=== PATIENT | male | born 1940 | race Caucasian/White ===

== ENCOUNTER 2019-12-03 16:54 | IRF | payer MEDICARE, OTHER, SELFPAY ==
[2019-12-03 14:50] VITALS: BP 132/67; PULSE 74; RESP 20; TEMP 36.6; O2SAT 95; BMI 33.2
--- NOTE | 2019-12-03 17:17 | ADMGEN ---
This patient, Graham Narayan, was admitted to [facility] Room 221-01. Patient/family oriented to hospital policies and general routines including ID bracelet, bed and alarms, visiting hours, pain management, procedures, bathroom and other care routines, personal items, smoking policy, room service/diet, and visiting hours. Valuables list has been completed. Information on how to activate the Rapid Response Team has been discussed. Patient/Family are encouraged to report perceived risks to care and to ask questions if they do not understand what they are told or what they should do.
[2019-12-03] MEDS: ACETAMINOPHEN 325 MG TABLET 650 MG PO (19:48)
[2019-12-03] MEDS: HEPARIN SODIUM 5,000 UNITS/ML VIAL 5000 UNITS SUB-Q (21:33)
[2019-12-03] MEDS: levETIRAcetam 500 MG TABLET 1000 MG PO (21:34)
[2019-12-03] MEDS: LATANOPROST 0.005% OP SOLN 2.5 ML BTL 1 DROP EACH EYE (21:34)
[2019-12-03 22:00] VITALS: BP 138/79; PULSE 63; RESP 18; TEMP 36.2; O2SAT 95
[2019-12-03] MEDS: DEXAMETHASONE 4 MG TABLET PO (22:12)
[2019-12-04] MEDS: LEVOTHYROXINE SODIUM 100 MCG TABLET PO (05:18)
[2019-12-04] MEDS: HEPARIN SODIUM 5,000 UNITS/ML VIAL 5000 UNITS SUB-Q ×3 (05:19→20:37)
[2019-12-04] MEDS: levETIRAcetam 500 MG TABLET 1000 MG PO ×2 (05:19→18:15)
[2019-12-04] MEDS: LEVOTHYROXINE SODIUM 75 MCG TABLET PO (05:19)
[2019-12-04 05:21] LABS: Basophils Percent Auto 0.1 % (0.2-1.2); Hematocrit 33.1 % (42.0-52.0); Hemoglobin 11.4 g/dL (14.0-18.0); Immature Granulocyte Absolute 0.14 K/mm3 (0.00-0.031); Immature Granulocyte Percent A 1.3 % (0-0.5); Lymphocytes Absolute Auto 0.57 K/mm3 (0.9-3.2); Lymphocytes Percent Auto 5.2 % (18.3-44.2); Mean Corpuscular HGB Conc 34.4 g/dl (32-36); Mean Corpuscular Hemoglobin 32.6 pg (26-34); Mean Corpuscular Volume 94.6 fl (80-100); Mean Platelet Volume 11.1 fl (7.4-10.4); Monocytes Absolute Auto 1.1 K/mm3 (0.1-0.6); Monocytes Percent Auto 10.3 % (2.6-8.5); Neutrophils Absolute Auto 9.1 K/mm3 (1.3-6.7); Neutrophils Percent Auto 83.1 % (45.5-73.1); Platelet Count Result 263 k/mm3 (150-375); Red Cell Distribution Width 12.3 % (11.5-14.5)
[2019-12-04 05:33] LABS: Blood Urea Nitrogen 25 mg/dL (9-20); Calcium 8.9 mg/dL (8.4-10.2); Carbon Dioxide 27 mmol/L (22-30); Chloride 98 mmol/L (98-107); Cholesterol 141 mg/dL (0-200); Estimated CRCL calculation 70 ml/min; Estimated Glomerular Filt Rate > 60; Glucose 218 mg/dL (75-110); HDL Direct 39 mg/dL; Potassium 3.8 mmol/L (3.4-5.0); Sodium 135 mmol/L (137-145); Triglycerides 112 mg/dL (<150)
[2019-12-04 05:44] LABS: LDL Cholesterol Direct 87 mg/dL
[2019-12-04 06:00] VITALS: BP 148/81; PULSE 72; RESP 20; TEMP 36.6; O2SAT 96
[2019-12-04] MEDS: ACETAMINOPHEN 325 MG TABLET 650 MG PO (08:43)
[2019-12-04] MEDS: CALCIUM CARBONATE (OSCAL) 500 MG TABLET 1000 MG PO (08:44)
[2019-12-04] MEDS: LOSARTAN POTASSIUM 100 MG TABLET PO (08:44)
[2019-12-04] MEDS: ATORVASTATIN 10 MG TABLET PO (08:44)
[2019-12-04] MEDS: DEXAMETHASONE 2 MG TABLET PO ×4 (08:44→20:38)
[2019-12-04] MEDS: MELOXICAM 7.5 MG TABLET PO (08:44)
[2019-12-04] MEDS: hydroCHLOROthiazide 25 MG TABLET PO (08:45)
[2019-12-04] MEDS: MULTIVITAMINS THERAPEUTIC TAB (*BKC) 1 TABLET PO (08:45)
[2019-12-04] MEDS: PANTOPRAZOLE 40 MG TABLET PO (08:45)
[2019-12-04] MEDS: ASPIRIN 81 MG CHEWABLE TABLET PO (08:45)
--- NOTE | 2019-12-04 13:30 | WPDREHABHP ---
H&P: HPI History of Present Illness Chief complaint: Right naeoexk-qzzvfwi-dsyxtzqvd lobe glioma Narrative: Graham Narayan is a 79 year old male HISTORY OF PRESENT ILLNESS: The patient's primary rehab impairment category is 0 3-brain dysfunction-nontraumatic The etiologic diagnosis is right parietotemporal parieto-occipital lobe glioma I saw this patient [id number] on December 04, 2019 at 1:00 p.m. The patient is a 79-year-old right-handed gentleman with a past medical history of pituitary adenoma resection in 2004, melanoma in the ER, thyroid cancer status post thyroidectomy, hypertension, and hyperlipidemia who presented to [facility] and November 25, 2019 after having had 1 to 2 weeks of headaches with left-sided visual field cuts and we gait with and steadiness. Imaging demonstrated an aggressive malignancy in the right posterior temporal / occipital lobe consistent with a multicentric glioblastoma. Neurosurgery was consulted and he underwent a craniotomy with tumor resection on November 29, 2019 with Aravind. Intraoperatively the case was complicated by increased venous bleeding. He was transferred to ICU. Postoperatively he did fairly well he did have a blood clot for which an IVC filter was placed on December 02, 2019. Physical examination continues to reveal left-sided neglect decreased safety awareness impaired balance decreased gross motor control and weakness. DVT prophylaxis with heparin 5000 units q.8 hours subcutaneously is in order seizure prophylaxis with Keppra 1000 milligram every 12 hour. He will continue on Decadron 4 milligram q.6 hours which is going to be tapered according to the schedule received from [facility] his pain is very well controlled and his labs are 2 within the normal limits except some elevation of the white count and blood sugar which most likely is due to use of dexamethasone the patient will have a follow-up appointment an outpatient basis and treatment plans will be made following inpatient rehabilitation. Therapy was initiated at the acute care facility and the patient transferred to us from [facility] on December 03, 2019 on FALLS OR SURGERIES: The patient has had major surgeries in the 100 days prior to admission. They had falls in the past year. They had falls with injury in the past year. 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 His significant other was present for the interview and his plan is to go home with her following rehabilitation. The significant other is available 247 her [place] is a 2 story home with 2 steps to enter with the handrail. He will need to be able to ascend/ descend a full flight of stairs to reach the bedroom /bathroom on the 2nd level. He is very motivated. He reported no falls in the past year he has had major surgery during this hospitalization. FAMILY HISTORY: Father with hypertension, rheumatic heart disease, peptic ulcer disease. Mother with breast cancer and stroke PRIOR LEVEL OF FUNCTION: Eating was INDEPENDENT Oral Care was INDEPENDENT Toileting Hygiene was INDEPENDENT Shower/Bathing was INDEPENDENT Upper Body Dressing was INDEPENDENT Lower Body Dressing was INDEPENDENT Donning/[place] Footwear was INDEPENDENT Rolling Left and Right was INDEPENDENT Sit to Lying was INDEPENDENT Lying to Sitting was INDEPENDENT Sit to Stand was INDEPENDENT Bed to Chair Transfers was INDEPENDENT Toilet Transfers was INDEPENDENT Walking was INDEPENDENT 750 feet with NO DEVICE Wheelchair Mobility was NOT APPLICABLE PRIOR TO ADMISSION Stairs were
[2019-12-04 14:00] VITALS: BP 122/53; PULSE 85; RESP 18; TEMP 36.4; O2SAT 100
[2019-12-04] MEDS: LATANOPROST 0.005% OP SOLN 2.5 ML BTL 1 DROP EACH EYE (18:15)
[2019-12-04 22:00] VITALS: BP 117/83; PULSE 78; RESP 16; TEMP 36.3; O2SAT 98
[2019-12-05] MEDS: HEPARIN SODIUM 5,000 UNITS/ML VIAL 5000 UNITS SUB-Q ×3 (05:24→20:30)
[2019-12-05] MEDS: levETIRAcetam 500 MG TABLET 1000 MG PO ×2 (05:24→16:54)
[2019-12-05] MEDS: LEVOTHYROXINE SODIUM 75 MCG TABLET PO (05:27)
[2019-12-05] MEDS: LEVOTHYROXINE SODIUM 100 MCG TABLET PO (05:40)
[2019-12-05 06:00] VITALS: BP 145/71; PULSE 63; RESP 16; TEMP 36.6; O2SAT 98
[2019-12-05] MEDS: ASPIRIN 81 MG CHEWABLE TABLET PO (09:57)
[2019-12-05] MEDS: CALCIUM CARBONATE (OSCAL) 500 MG TABLET 1000 MG PO (09:57)
[2019-12-05] MEDS: LOSARTAN POTASSIUM 100 MG TABLET PO (09:57)
[2019-12-05] MEDS: DEXAMETHASONE 2 MG TABLET PO ×4 (09:57→20:28)
[2019-12-05] MEDS: ATORVASTATIN 10 MG TABLET PO (09:58)
[2019-12-05] MEDS: PANTOPRAZOLE 40 MG TABLET PO (09:58)
[2019-12-05] MEDS: MULTIVITAMINS THERAPEUTIC TAB (*BKC) 1 TABLET PO (09:58)
[2019-12-05] MEDS: hydroCHLOROthiazide 25 MG TABLET PO (09:58)
[2019-12-05] MEDS: MELOXICAM 7.5 MG TABLET PO (09:58)
--- NOTE | 2019-12-05 13:58 | WPDNEURORHBP ---
Subjective Date/time seen: 12/05/19 13:58 Interval history: patient is here after having at craniotomy for glioblastoma he denies any headache nausea vomiting chest pain or shortness of breath but complains of insomnia and the occupational therapist noted that the patient has some confusion and visual field defect which she clearly is aware of and so is the alyssae who is present at the time of the interview Review of Systems Constitutional: Constitutional: Reports no additional constitutional complaints Eyes: Eyes: Reports no additional eye complaints ENT: Reports system reviewed and no additional complaints, except as documented Cardiovascular: Cardiovascular: Reports no additional cardiovascular complaints Respiratory: Respiratory: Reports no additional respiratory complaints Gastrointestinal: Gastrointestinal: Reports no additional gastrointestinal complaints Genitourinary: Genitourinary: Reports no additional male genitourinary complaints Musculoskeletal: Musculoskeletal: Reports no additional musculoskeletal complaints Integumentary/Breasts: Skin/Breast: Reports system reviewed and no additional complaints, except as docu Neurologic: Reports system reviewed and no additional complaints, except as documented Psychiatric: Psychiatric: Reports no additional psychiatric complaints Functional Status Ambulation Ability Ability to Ambulate 10 Feet: Minimum Assistance X 1 Ability to Ambulate 50 Feet With 2 Turns: Minimum Assistance X 1 Ability to Ambulate 150 Feet: Minimum Assistance X 1 Ambulation Assistive Devices: None Transfers Ability Ability to Transfer In/Out of Chair: Minimum Assistance X 1 Exam Const: General: comfortable and no acute distress HENMT: General nose exam: Normal nares present Mouth: Yes moist mucous membranes Eyes: General: appearance normal, both eyes and all related structures Other: left-sided visual field defect which is quite dense Neck: Neck: supple and no JVD Resp: Effort & Inspection: normal respiratory effort Auscultation: clear to auscultation bilaterally Cardio: Rate: regular rate Rhythm: regular rhythm GI: GI Palp: Yes Soft to palpation Auscultation: normal bowel sounds Skin: General skin exam: normal color and no rashes or lesions noted Neuro: Other: patient at the time of this examination is quite alert and well oriented time place and person normal speech and language function he does have a left-sided visual field defect which is rather dense and also [id number] left-sided hemiparesis needing assistance all the activities of daily living and DIS balance for which she needs the assistance and careful monitoring for fall prevention Extrem: General: normal to inspection Objective Data Vital Signs Vital Signs: Vital Signs - 24 hr 12/04/19 14:00 12/04/19 22:00 12/05/19 06:00 Temperature 36.4 C 36.3 C L 36.6 C Pulse Rate 85 78 63 Respiratory Rate 18 16 16 Blood Pressure 122/53 L 117/83 145/71 H Pulse Oximetry 100 98 98 Intake/Output Intake/Output: Intake & Output 12/02/19 12/03/19 12/04/19 12/05/19 23:59 23:59 23:59 23:59 Intake Total 960 480 Balance 960 480 Meds/Results Medications: Active Medications Generic Name Dose Route Start Last Admin Trade Name Freq PRN Reason Stop Dose Admin Acetaminophen 650 mg 12/03/19 18:03 12/04/19 08:43 Tylenol Tablet PO 650 mg Q4H PRN Administration Pain (Scale Score 1-3) Aspirin 81 mg 12/04/19 09:00 12/05/19 09:57 Aspirin Chewable PO 81 mg DAILY BLUE Administration Atorvastatin Calcium 10 mg 12/04/19 09:00 12/05/19 09:58 Lipitor PO 10 mg DAILY BLUE Administration Calcium Carbonate 1,000 mg 12/04/19 09:00 12/05/19 09:57 Oscal 500 Mg PO 1,000 mg DAILY BLUE Administration Dexamethasone 4 mg 12/04/19 08:00 12/05/19 12:26 Dexamethasone Po PO 12/17/19 07:59 4 mg [facility] BLUE Administration Taper Diphenhydramine HCl 25 mg 12/05/19 13:13
[2019-12-05 14:00] VITALS: BP 120/66; PULSE 63; RESP 18; TEMP 36.3; O2SAT 99
[2019-12-05] MEDS: DOCUSATE SODIUM 100 MG CAPSULE PO ×2 (16:53→20:28)
[2019-12-05] MEDS: LATANOPROST 0.005% OP SOLN 2.5 ML BTL 1 DROP EACH EYE (16:55)
[2019-12-05] MEDS: ACETAMINOPHEN 325 MG TABLET 650 MG PO (20:28)
[2019-12-05 21:11] VITALS: BP 117/71; PULSE 61; RESP 20; TEMP 36.4; O2SAT 96
[2019-12-06] MEDS: levETIRAcetam 500 MG TABLET 1000 MG PO ×2 (06:11→18:17)
[2019-12-06] MEDS: LEVOTHYROXINE SODIUM 75 MCG TABLET PO (06:11)
[2019-12-06] MEDS: LEVOTHYROXINE SODIUM 100 MCG TABLET PO (06:11)
[2019-12-06] MEDS: HEPARIN SODIUM 5,000 UNITS/ML VIAL 5000 UNITS SUB-Q ×3 (06:11→21:09)
[2019-12-06] MEDS: ATORVASTATIN 10 MG TABLET PO (10:01)
[2019-12-06] MEDS: CALCIUM CARBONATE (OSCAL) 500 MG TABLET 1000 MG PO (10:01)
[2019-12-06] MEDS: DEXAMETHASONE 2 MG TABLET PO ×4 (10:01→20:33)
[2019-12-06] MEDS: ASPIRIN 81 MG CHEWABLE TABLET PO (10:01)
[2019-12-06] MEDS: MULTIVITAMINS THERAPEUTIC TAB (*BKC) 1 TABLET PO (10:02)
[2019-12-06] MEDS: LOSARTAN POTASSIUM 100 MG TABLET PO (10:02)
[2019-12-06] MEDS: MELOXICAM 7.5 MG TABLET PO (10:02)
[2019-12-06] MEDS: DOCUSATE SODIUM 100 MG CAPSULE PO ×2 (10:02→20:33)
[2019-12-06] MEDS: hydroCHLOROthiazide 25 MG TABLET PO (10:02)
[2019-12-06] MEDS: PANTOPRAZOLE 40 MG TABLET PO (10:03)
[2019-12-06 14:00] VITALS: BP 131/67; PULSE 77; RESP 19; TEMP 36.7; O2SAT 99
[2019-12-06 14:22] VITALS: BMI 33.2
--- NOTE | 2019-12-06 15:39 | PCNSR ---
On 12/06/19, the student, Lyubov Escalante, provided care and completed [facility] documentation on this patient. I have reviewed the student's documentation and agree with the findings.
--- NOTE | 2019-12-06 16:58 | RPD ---
INDIVIDUALIZED PLAN OF CARE FOR Graham Narayan Brief Synthesis of Pre-Admission Screen, Post-Admission Evaluation and Therapy Evaluations: The patient presents to rehab with Right zijtlcy-niwypct-atikang-occipital lobe glioma. Comorbidities include Status post craniotomy for tumor resection, deep venous thrombosis status post IVC filter placement, hypertension, acute blood loss anemia, leukocytosis, left-sided neglect, balance impairment, hyperlipidemia, acute pain, impaired mobility. The patient requires physician services for neurology services, medical oversight, and coordination of care. The patient needs physician monitoring and treatment of anemia, perioperative blood loss, monitoring for adverse reactions to new medications, monitoring of infection, and pain control. Deficits include:ADLs, Balance, Endurance, Mobility, Pain Management, ROM, Safety, Strength,Transfers Kineseologist/Case Management for: Discharge Planning and Patient/Family Counseling Physical Therapy: 5 days per week for 75 minutes. Treatments may include: Therapeutic Exercise, Gait Training, Neuromuscular Re-education, Transfer Training, Community Reintegration, Bed Mobility, Patient/Family Education, Wheelchair Mobility Group Therapy/Concurrent Therapy Rationales: -Improve attention span during functional activities in a distracted environment. -Enhance problem solving and/or adequate judgment skills during functional activities in a distracted environment. -Promote increased safety awareness in a distracted environment to reduce fall risk with functional tasks, transfers, and ambulation to allow a more safe, self-sufficient return to the home environment. -Improve dynamic balance skills to promote safety and independence with functional activities in a distracted environment for maximum gain. Occupational Therapy: 5 days per week for 75 minutes. Treatments may include: Therapeutic Exercise, Therapeutic Activity, Cognitive Training, Self-Care Transfer Training, Community Reintegration, Home Management, Patient/Family Education, Wheelchair Mobility Training, Energy Conservation Training Group Therapy/Concurrent Therapy Rationales: -Allow therapist to observe and teach generalization and carry-over of skills learned in individual therapy. -Enhance problem solving and sequencing skills during therapeutic activities in a distracted environment. -Promote increased safety awareness in a realistic setting to reduce fall risk with functional tasks due to visual and verbal distractions. -Increase functional level with ADLs, ADL transfers and use of adaptive equipment through therapeutic activities with others while promoting safety to allow a more safe, self-sufficient return home. Speech Therapy: 5 days per week for 30 minutes. Treatments may include: Dysphasia Therapy, Speech/Language/Communication Therapy, Cognitive Training, Patient/Family Education Group Therapy/Concurrent Therapy - Rationale: -Allow therapist to observe and teach generalization and carry-over of skills learned in individual therapy. -Improve comprehension skills with complex or abstract ideas through discussion in a realistic setting. -Enhance problem solving skills with complex issues during activities in a distracted environment. -Promote increased memory skills and concentration in a distracted environment for a safe transition home. -Improve attention and focus with language/communication skills in a realistic and supportive therapeutic setting. -Allow for practice of expression of basic needs and ideas through functional activities with others. Medical Prognosis: Good Anticipated Length of Stay: 12 days Rehab Goals: Eating Goal: 06-Independent Oral Hygiene Goal: 06-Independent Toileting Hygiene Goal: 06-Independent Shower/Bathe Self Goal: 06-Independent Upper Body Dressing Goal: 06-Independent Lower Body Dressing Goal: 06-Independent Putting On/Taking Off Footwear Goal: 06-Independent Rolling Left and
[2019-12-06] MEDS: LATANOPROST 0.005% OP SOLN 2.5 ML BTL 1 DROP EACH EYE (18:17)
[2019-12-06] MEDS: ACETAMINOPHEN 325 MG TABLET 650 MG PO (21:09)
[2019-12-06 22:00] VITALS: BP 148/74; PULSE 93; RESP 18; TEMP 36.6; O2SAT 97
[2019-12-07] MEDS: levETIRAcetam 500 MG TABLET 1000 MG PO ×2 (05:57→17:28)
[2019-12-07] MEDS: LEVOTHYROXINE SODIUM 75 MCG TABLET PO (05:57)
[2019-12-07] MEDS: HEPARIN SODIUM 5,000 UNITS/ML VIAL 5000 UNITS SUB-Q ×3 (05:58→20:56)
[2019-12-07] MEDS: LEVOTHYROXINE SODIUM 100 MCG TABLET PO (05:58)
[2019-12-07 06:00] VITALS: BP 157/85; PULSE 66; RESP 19; TEMP 36.2; O2SAT 95
[2019-12-07] MEDS: ACETAMINOPHEN 325 MG TABLET 650 MG PO ×2 (06:04→10:30)
[2019-12-07] MEDS: DEXAMETHASONE 2 MG TABLET PO ×4 (10:31→20:55)
[2019-12-07] MEDS: ASPIRIN 81 MG CHEWABLE TABLET PO (10:31)
[2019-12-07] MEDS: ATORVASTATIN 10 MG TABLET PO (10:31)
[2019-12-07] MEDS: DOCUSATE SODIUM 100 MG CAPSULE PO ×2 (10:32→20:56)
[2019-12-07] MEDS: hydroCHLOROthiazide 25 MG TABLET PO (10:32)
[2019-12-07] MEDS: CALCIUM CARBONATE (OSCAL) 500 MG TABLET 1000 MG PO (10:32)
[2019-12-07] MEDS: MELOXICAM 7.5 MG TABLET PO (10:33)
[2019-12-07] MEDS: LOSARTAN POTASSIUM 100 MG TABLET PO (10:33)
[2019-12-07] MEDS: MULTIVITAMINS THERAPEUTIC TAB (*BKC) 1 TABLET PO (10:33)
[2019-12-07] MEDS: PANTOPRAZOLE 40 MG TABLET PO (10:34)
--- NOTE | 2019-12-07 12:19 | WPDNEURORHBP ---
Subjective Date/time seen: 12/07/19 12:19 Interval history: the patient is here because of right parietotemporal occipital most likely glioblastoma with significant visual field defect and higher level balance problem and the safety issues patient is quite jovial and talkative and at times impulsive which is most likely the effect of dexamethasone he is on a times make some inappropriate remarks however they are now out of ordinary patient denies any headache nausea vomiting chest pain or shortness of breath fever chills Review of Systems Constitutional: Constitutional: Reports no additional constitutional complaints Eyes: Eyes: Reports no additional eye complaints ENT: Reports system reviewed and no additional complaints, except as documented Cardiovascular: Cardiovascular: Reports no additional cardiovascular complaints Respiratory: Respiratory: Reports no additional respiratory complaints Gastrointestinal: Gastrointestinal: Reports no additional gastrointestinal complaints Genitourinary: Genitourinary: Reports no additional male genitourinary complaints Musculoskeletal: Musculoskeletal: Reports no additional musculoskeletal complaints Integumentary/Breasts: Skin/Breast: Reports system reviewed and no additional complaints, except as docu Neurologic: Reports system reviewed and no additional complaints, except as documented Psychiatric: Psychiatric: Reports no additional psychiatric complaints Functional Status Ambulation Ability Ability to Ambulate 10 Feet: Minimum Assistance X 1 Ability to Ambulate 50 Feet With 2 Turns: Minimum Assistance X 1 Ability to Ambulate 150 Feet: Minimum Assistance X 1 Ambulation Assistive Devices: Cane Transfers Ability Ability to Transfer In/Out of Chair: Contact Guard Exam Const: General: comfortable and no acute distress HENMT: General nose exam: Normal nares present Mouth: Yes moist mucous membranes Other: the craniotomy site is clean and healthy on the right hip right 0 temporal occipital area Eyes: General: appearance normal, both eyes and all related structures Neck: Neck: supple and no JVD Resp: Effort & Inspection: normal respiratory effort Auscultation: clear to auscultation bilaterally Cardio: Rate: regular rate Rhythm: regular rhythm GI: GI Palp: Yes Soft to palpation Auscultation: normal bowel sounds Skin: General skin exam: normal color and no rashes or lesions noted Neuro: Other: patient is well oriented time place and person little in place for and jovial and talkative continues to show left-sided neglect left-sided dense visual field defect and balance issues and safety issues he did have some sensory phenomenon yesterday where the left forearm hand was numb however it resolved in reasonable period of time we need to observe for any focal motor and/or sensory seizures knowing the fact he does have a lesion on the right hemisphere Objective Data Vital Signs Vital Signs: Vital Signs - 24 hr 12/06/19 14:00 12/06/19 22:00 12/07/19 06:00 Temperature 36.7 C 36.6 C 36.2 C L Pulse Rate 77 93 66 Respiratory Rate 19 18 19 Blood Pressure 131/67 148/74 H 157/85 H Pulse Oximetry 99 97 95 Intake/Output Intake/Output: Intake & Output 12/04/19 12/05/19 12/06/19 12/07/19 23:59 23:59 23:59 23:59 Intake Total 960 720 910 440 Balance 960 720 910 440 Meds/Results Medications: Active Medications Generic Name Dose Route Start Last Admin Trade Name Freq PRN Reason Stop Dose Admin Acetaminophen 650 mg 12/03/19 18:03 12/07/19 10:30 Tylenol Tablet PO 650 mg Q4H PRN Administration Pain (Scale Score 1-3) Aspirin 81 mg 12/04/19 09:00 12/07/19 10:31 Aspirin Chewable PO 81 mg DAILY BLUE Administration Atorvastatin Calcium 10 mg 12/04/19 09:00 12/07/19 10:31 Lipitor PO 10 mg DAILY BLUE Administration Bisacodyl 10 mg 12/05/19 14:09 Dulcolax Tab PO DAILY PRN Constipation Calcium Carbonate 1,000 mg 12/04/19
[2019-12-07 14:00] VITALS: BP 142/74; PULSE 70; RESP 18; TEMP 36.3; O2SAT 98
--- NOTE | 2019-12-07 14:29 | PCCCNOTE ---
On 12/07/19, the student, [Lavelle Baker ], provided care and completed [facility] documentation on this patient. I have reviewed the student's documentation and agree with the findings.
[2019-12-07] MEDS: LATANOPROST 0.005% OP SOLN 2.5 ML BTL 1 DROP EACH EYE (17:29)
--- NOTE | 2019-12-07 18:18 | PC.NURSE ---
Late entry from 12/06/19: Patient called endo doctor and settings changed to insulin pump. From 6am to 12am basal rate down to 1.2 from 1.4 and 12am to 5am 1.25 with 10:1 carb ratio which started at approx. 5pm. Will continue to monitor. 12/07/19 battery changed at 4:30pm.
[2019-12-07] MEDS: MELATONIN 5 MG TABLET 10 MG PO (20:56)
[2019-12-07 22:00] VITALS: BP 136/75; PULSE 71; RESP 18; TEMP 36.5; O2SAT 95
[2019-12-08 06:00] VITALS: BP 126/58; PULSE 72; RESP 18; TEMP 36.3; O2SAT 97
[2019-12-08] MEDS: LOSARTAN POTASSIUM 100 MG TABLET PO (06:07)
[2019-12-08] MEDS: HEPARIN SODIUM 5,000 UNITS/ML VIAL 5000 UNITS SUB-Q ×3 (06:07→22:00)
[2019-12-08] MEDS: CALCIUM CARBONATE (OSCAL) 500 MG TABLET 1000 MG PO (06:07)
[2019-12-08] MEDS: PANTOPRAZOLE 40 MG TABLET PO (06:08)
[2019-12-08] MEDS: MELOXICAM 7.5 MG TABLET PO (06:08)
[2019-12-08] MEDS: hydroCHLOROthiazide 25 MG TABLET PO (06:08)
[2019-12-08] MEDS: DOCUSATE SODIUM 100 MG CAPSULE PO ×2 (06:08→20:39)
[2019-12-08] MEDS: MULTIVITAMINS THERAPEUTIC TAB (*BKC) 1 TABLET PO (06:08)
[2019-12-08] MEDS: DEXAMETHASONE 2 MG TABLET PO ×4 (06:08→20:39)
[2019-12-08] MEDS: LEVOTHYROXINE SODIUM 75 MCG TABLET PO (06:09)
[2019-12-08] MEDS: LEVOTHYROXINE SODIUM 100 MCG TABLET PO (06:09)
[2019-12-08] MEDS: ATORVASTATIN 10 MG TABLET PO (06:09)
[2019-12-08] MEDS: ASPIRIN 81 MG CHEWABLE TABLET PO (06:09)
[2019-12-08] MEDS: levETIRAcetam 500 MG TABLET 1000 MG PO ×2 (06:09→17:52)
[2019-12-08 08:00] VITALS: PULSE 71; RESP 20; O2SAT 94
--- NOTE | 2019-12-08 10:50 | WPDNEURORHBP ---
Subjective Date/time seen: 12/08/19 10:50 Interval history: patient had an appointment with his neurosurgeon this morning and has gone for the appointment however according to the night nurse and also the attending nurse this morning the patient is stable without any change in his overall neurological and mental status status denies any headache nausea vomiting chest pain or shortness of breath his higher level balance issues and visual field defect remains roughly about the same Review of Systems Constitutional: Constitutional: Reports no additional constitutional complaints Eyes: Eyes: Reports no additional eye complaints ENT: Reports system reviewed and no additional complaints, except as documented Cardiovascular: Cardiovascular: Reports no additional cardiovascular complaints Respiratory: Respiratory: Reports no additional respiratory complaints Gastrointestinal: Gastrointestinal: Reports no additional gastrointestinal complaints Genitourinary: Genitourinary: Reports no additional male genitourinary complaints Musculoskeletal: Musculoskeletal: Reports no additional musculoskeletal complaints Integumentary/Breasts: Skin/Breast: Reports system reviewed and no additional complaints, except as docu Neurologic: Reports system reviewed and no additional complaints, except as documented Psychiatric: Psychiatric: Reports no additional psychiatric complaints Functional Status Ambulation Ability Ability to Ambulate 10 Feet: Contact Guard Ability to Ambulate 50 Feet With 2 Turns: Contact Guard Ability to Ambulate 150 Feet: Contact Guard Ambulation Assistive Devices: Cane Transfers Ability Ability to Transfer In/Out of Chair: Standby Assistance Exam Const: General: comfortable and no acute distress HENMT: General nose exam: Normal nares present Mouth: Yes moist mucous membranes Eyes: General: appearance normal, both eyes and all related structures Neck: Neck: supple and no JVD Resp: Effort & Inspection: normal respiratory effort Auscultation: clear to auscultation bilaterally Cardio: Rate: regular rate Rhythm: regular rhythm GI: GI Palp: Yes Soft to palpation Auscultation: normal bowel sounds Skin: General skin exam: normal color and no rashes or lesions noted Neuro: Other: patient is well oriented to time place and person is with normal speech and language function however does have dense left-sided visual field defect and also left-sided neglect and also higher level balance problem with mild him I sensory deficit on the left side and possibly subtle but present left-sided weakness Extrem: General: normal to inspection Objective Data Vital Signs Vital Signs: Vital Signs - 24 hr 12/07/19 14:00 12/07/19 22:00 12/08/19 06:00 Temperature 36.3 C L 36.5 C 36.3 C L Pulse Rate 70 71 72 Respiratory Rate 18 18 18 Blood Pressure 142/74 H 136/75 126/58 L Pulse Oximetry 98 95 97 Intake/Output Intake/Output: Intake & Output 12/05/19 12/06/19 12/07/19 12/08/19 23:59 23:59 23:59 23:59 Intake Total 720 910 920 Balance 720 910 920 Meds/Results Medications: Active Medications Generic Name Dose Route Start Last Admin Trade Name Freq PRN Reason Stop Dose Admin Acetaminophen 650 mg 12/03/19 18:03 12/07/19 10:30 Tylenol Tablet PO 650 mg Q4H PRN Administration Pain (Scale Score 1-3) Aspirin 81 mg 12/04/19 09:00 12/08/19 06:09 Aspirin Chewable PO 81 mg DAILY BLUE Administration Atorvastatin Calcium 10 mg 12/04/19 09:00 12/08/19 06:09 Lipitor PO 10 mg DAILY BLUE Administration Bisacodyl 10 mg 12/05/19 14:09 Dulcolax Tab PO DAILY PRN Constipation Calcium Carbonate 1,000 mg 12/04/19 09:00 12/08/19 06:07 Oscal 500 Mg PO 1,000 mg DAILY BLUE Administration Dexamethasone 2 mg 12/04/19 08:00 12/08/19 06:08 Dexamethasone Po PO 12/17/19 07:59 2 mg [facility] BLUE Administration Taper Diphenhydramine HCl 25 mg 12/05/19 13:13 02
[2019-12-08 14:00] VITALS: BP 126/64; PULSE 71; RESP 20; TEMP 36.4; O2SAT 94
--- NOTE | 2019-12-08 14:00 | PCOTNOTE ---
Patient had limited OT minutes this date secondary to MD appointments this AM. Patient did not receive full OT minutes this date.
--- NOTE | 2019-12-08 16:01 | PCPTNOTE ---
Graham Narayan was evaluated for a []straight cane on 12/08/2019 by this physical therapist. The []straight cane will resolve patient's mobility limitations and will be used for ADL's within the home. The patient can safely use the [cane and will greatly require use of cane to improve safety with mobility and ADL's and fall prevention]. Patient has deficits with standing balance, impulsivity, easily distracted, and visual deficits.?The [straight cane] will resolve the patient?s mobility deficits and aide in fall prevention.
[2019-12-08] MEDS: LATANOPROST 0.005% OP SOLN 2.5 ML BTL 1 DROP EACH EYE (17:52)
[2019-12-08] MEDS: MELATONIN 5 MG TABLET 10 MG PO (20:39)
[2019-12-08] MEDS: ACETAMINOPHEN 325 MG TABLET 650 MG PO (20:42)
[2019-12-08 21:58] VITALS: BP 128/56; PULSE 68; RESP 18; TEMP 36.8; O2SAT 97
[2019-12-08 23:26] LABS: Glucose Point of Care 133 (65-105)
[2019-12-09 06:00] VITALS: BP 147/79; PULSE 59; RESP 20; TEMP 36.3; O2SAT 96
[2019-12-09] MEDS: HEPARIN SODIUM 5,000 UNITS/ML VIAL 5000 UNITS SUB-Q ×3 (06:11→21:01)
[2019-12-09] MEDS: levETIRAcetam 500 MG TABLET 1000 MG PO (06:12)
[2019-12-09] MEDS: LEVOTHYROXINE SODIUM 75 MCG TABLET PO (06:13)
[2019-12-09] MEDS: LEVOTHYROXINE SODIUM 100 MCG TABLET PO (06:13)
[2019-12-09 07:14] LABS: Glucose Point of Care 126 (65-105)
[2019-12-09] MEDS: LOSARTAN POTASSIUM 100 MG TABLET PO (10:05)
[2019-12-09] MEDS: PANTOPRAZOLE 40 MG TABLET PO (10:05)
[2019-12-09] MEDS: MULTIVITAMINS THERAPEUTIC TAB (*BKC) 1 TABLET PO (10:05)
[2019-12-09] MEDS: ATORVASTATIN 10 MG TABLET PO (10:05)
[2019-12-09] MEDS: hydroCHLOROthiazide 25 MG TABLET PO (10:05)
[2019-12-09] MEDS: DOCUSATE SODIUM 100 MG CAPSULE PO ×2 (10:06→20:56)
[2019-12-09] MEDS: ASPIRIN 81 MG CHEWABLE TABLET PO (10:06)
[2019-12-09] MEDS: DEXAMETHASONE 2 MG TABLET PO ×4 (10:06→20:55)
[2019-12-09] MEDS: CALCIUM CARBONATE (OSCAL) 500 MG TABLET 1000 MG PO (10:06)
[2019-12-09] MEDS: MELOXICAM 7.5 MG TABLET PO (10:06)
[2019-12-09 12:13] LABS: Glucose Point of Care 81 (65-105)
[2019-12-09 14:00] VITALS: BP 114/54; PULSE 73; RESP 20; TEMP 36.3; O2SAT 100
--- NOTE | 2019-12-09 14:47 | PCPTNOTE ---
12/09/19 late entry for 10/07/20- patient was not avaliable for physical therapy this am due to patient at out of house doctor appointment this date.
[2019-12-09 15:08] VITALS: PULSE 59; RESP 20; O2SAT 96
[2019-12-09 17:32] LABS: Glucose Point of Care 162 (65-105)
[2019-12-09] MEDS: LATANOPROST 0.005% OP SOLN 2.5 ML BTL 1 DROP EACH EYE (17:46)
[2019-12-09 20:46] LABS: Glucose Point of Care 182 (65-105)
[2019-12-09] MEDS: levETIRAcetam 500 MG TABLET PO (20:56)
[2019-12-09] MEDS: MELATONIN 5 MG TABLET 10 MG PO (20:57)
[2019-12-09 22:00] VITALS: BP 135/64; PULSE 66; RESP 20; TEMP 36.4; O2SAT 97
[2019-12-10 06:07] VITALS: BP 160/77; PULSE 101; RESP 18; TEMP 36.3; O2SAT 93
[2019-12-10] MEDS: HEPARIN SODIUM 5,000 UNITS/ML VIAL 5000 UNITS SUB-Q ×3 (06:18→21:34)
[2019-12-10] MEDS: LEVOTHYROXINE SODIUM 75 MCG TABLET PO (06:19)
[2019-12-10] MEDS: LEVOTHYROXINE SODIUM 50 MCG TABLET 100 MCG PO (06:19)
[2019-12-10 07:40] LABS: Glucose Point of Care 119 (65-105)
[2019-12-10] MEDS: DEXAMETHASONE 2 MG TABLET PO ×4 (09:36→21:33)
[2019-12-10] MEDS: DOCUSATE SODIUM 100 MG CAPSULE PO ×2 (09:37→21:33)
[2019-12-10] MEDS: levETIRAcetam 500 MG TABLET PO ×2 (09:37→21:34)
[2019-12-10] MEDS: CALCIUM CARBONATE (OSCAL) 500 MG TABLET 1000 MG PO (09:37)
[2019-12-10] MEDS: ATORVASTATIN 10 MG TABLET PO (09:37)
[2019-12-10] MEDS: hydroCHLOROthiazide 25 MG TABLET PO (09:37)
[2019-12-10] MEDS: ASPIRIN 81 MG CHEWABLE TABLET PO (09:37)
[2019-12-10] MEDS: MELOXICAM 7.5 MG TABLET PO (09:38)
[2019-12-10] MEDS: PANTOPRAZOLE 40 MG TABLET PO (09:38)
[2019-12-10] MEDS: MULTIVITAMINS THERAPEUTIC TAB (*BKC) 1 TABLET PO (09:38)
[2019-12-10] MEDS: LOSARTAN POTASSIUM 100 MG TABLET PO (09:38)
--- NOTE | 2019-12-10 13:45 | PCDIET ---
Nutrition Follow-Up Complete: Increased nutrient needs reated to craniotomoy w/ tumor resection as evidenced by calculated estimated needs of 2387-2877kcals/day and 82-102g/pro/day. Pt heber consume greater than 85% of all meals. Goal: Goal not met. Pt's average meal consumption is 72% (out of past 8 meals). Nutrition recommendation: Recommend continuation of Regular diet to ensure pt meets nutritional needs. Last recorded weight is 102 kg. Bowel Motility: +BM 12/10 Labs Reviewed:POC Capillary Glu (119) Meds Noted: Multivitamin, Colace, Lipitor, Dulcolax. Cozaar Additional Notes: Pt states appetite is good. No complaints of N/V, abdominal pain, constipation or diarrhea. Family brought take-out to pt today, he said appetite was good and was drinking a milkshake when I visited with him. Will monitor intake and labs, especially glucose. Will follow up in 5 days.
[2019-12-10 14:00] VITALS: BP 117/63; PULSE 73; RESP 18; TEMP 36.3; O2SAT 97
--- NOTE | 2019-12-10 14:11 | WPDNEURORHBP ---
Subjective Date/time seen: 12/10/19 14:11 Interval history: patient denies having any headache nausea vomiting chest pain or shortness of breath he is progressing in the rehab quite well the has been in touch with the vascular team at [facility] about the full therapeutic dose of anticoagulant and in fact I called the vascular team doctor doctor Nick huggins and he felt that initiation of the therapeutic dosages of anticoagulant must come from the neurosurgeon and he promised that he will be in touch with the neurosurgeon and they will get back with me about the recommendation when to resume the anticoagulation for DVT He also mentioned that he would like to remove the IVC filter once the patient is on full dose of anticoagulation Review of Systems Constitutional: Constitutional: Reports no additional constitutional complaints Eyes: Eyes: Reports no additional eye complaints ENT: Reports system reviewed and no additional complaints, except as documented Cardiovascular: Cardiovascular: Reports no additional cardiovascular complaints Respiratory: Respiratory: Reports no additional respiratory complaints Gastrointestinal: Gastrointestinal: Reports no additional gastrointestinal complaints Genitourinary: Genitourinary: Reports no additional male genitourinary complaints Musculoskeletal: Musculoskeletal: Reports no additional musculoskeletal complaints Integumentary/Breasts: Skin/Breast: Reports system reviewed and no additional complaints, except as docu Neurologic: Reports system reviewed and no additional complaints, except as documented Psychiatric: Psychiatric: Reports no additional psychiatric complaints Functional Status Ambulation Ability Ability to Ambulate 10 Feet: Standby Assistance Ability to Ambulate 50 Feet With 2 Turns: Standby Assistance Ability to Ambulate 150 Feet: Standby Assistance Ambulation Assistive Devices: Cane Transfers Ability Ability to Transfer In/Out of Chair: Independent Exam Const: General: comfortable and no acute distress HENMT: General nose exam: Normal nares present Mouth: Yes moist mucous membranes Eyes: General: appearance normal, both eyes and all related structures Neck: Neck: supple and no JVD Resp: Effort & Inspection: normal respiratory effort Auscultation: clear to auscultation bilaterally Cardio: Rate: regular rate Rhythm: regular rhythm GI: GI Palp: Yes Soft to palpation Auscultation: normal bowel sounds Skin: General skin exam: normal color and no rashes or lesions noted Neuro: Other: patient's remain awake and alert well oriented time place and person has normal speech and language function however he does have issue of the visual field defect imbalance and generalized decrease in the endurance and fatigue and tiredness remains little bit impulsive most likely related to his dexamethasone therapy Extrem: General: normal to inspection Objective Data Vital Signs Vital Signs: Vital Signs - 24 hr 12/09/19 15:08 12/09/19 22:00 12/10/19 06:07 Temperature 36.4 C L 36.3 C L Pulse Rate 59 L 66 101 H Respiratory Rate 20 20 18 Blood Pressure 135/64 160/77 H Pulse Oximetry 96 97 93 Intake/Output Intake/Output: Intake & Output 12/07/19 12/08/19 12/09/19 12/10/19 23:59 23:59 23:59 23:59 Intake Total 920 300 580 240 Balance 920 300 580 240 Meds/Results Medications: Active Medications Generic Name Dose Route Start Last Admin Trade Name Freq PRN Reason Stop Dose Admin Acetaminophen 650 mg 12/03/19 18:03 12/08/19 20:42 Tylenol Tablet PO 650 mg Q4H PRN Administration Pain (Scale Score 1-3) Aspirin 81 mg 12/04/19 09:00 12/10/19 09:37 Aspirin Chewable PO 81 mg DAILY BLUE Administration Atorvastatin Calcium 10 mg 12/04/19 09:00 12/10/19 09:37 Lipitor PO 10 mg DAILY BLUE Administration Bisacodyl 10 mg 12/05/19 14:09 Dulcolax Tab PO DAILY PRN Constipation Calcium Carbonate 1,000 m
--- NOTE | 2019-12-10 14:46 | PCNSR ---
On 12/10/19, the student, Lyubov Escalante, provided care and completed [facility] documentation on this patient. I have reviewed the student's documentation and agree with the findings.
[2019-12-10] MEDS: LATANOPROST 0.005% OP SOLN 2.5 ML BTL 1 DROP EACH EYE (18:26)
[2019-12-10] MEDS: ACETAMINOPHEN 325 MG TABLET 650 MG PO (21:34)
[2019-12-10] MEDS: MELATONIN 5 MG TABLET 10 MG PO (21:34)
[2019-12-10 22:00] VITALS: BP 125/72; PULSE 80; RESP 18; TEMP 36.6; O2SAT 98
[2019-12-11 05:11] LABS: Basophils Percent Auto 0.1 % (0.2-1.2); Hematocrit 36.3 % (42.0-52.0); Hemoglobin 12.3 g/dL (14.0-18.0); Immature Granulocyte Percent A 9.2 % (0-0.5); Lymphocytes Absolute Auto 1.17 K/mm3 (0.9-3.2); Lymphocytes Percent Auto 4.7 % (18.3-44.2); Mean Corpuscular HGB Conc 33.9 g/dl (32-36); Mean Corpuscular Hemoglobin 32.2 pg (26-34); Mean Platelet Volume 10.5 fl (7.4-10.4); Monocytes Percent Auto 7.9 % (2.6-8.5); Neutrophils Absolute Auto 19.7 K/mm3 (1.3-6.7); Neutrophils Percent Auto 78.1 % (45.5-73.1); Platelet Count Result 273 k/mm3 (150-375); Red Blood Count 3.82 M/mm3 (4.6-6.20); Red Cell Distribution Width 13.2 % (11.5-14.5); White Blood Count 25.1 K/mm3 (4.5-10.0)
[2019-12-11 05:49] LABS: Blood Urea Nitrogen 36 mg/dL (9-20); Calcium 8.5 mg/dL (8.4-10.2); Carbon Dioxide 27 mmol/L (22-30); Chloride 100 mmol/L (98-107); Estimated CRCL calculation 53 ml/min; Estimated Glomerular Filt Rate 59; Glucose 142 mg/dL (75-110); Potassium 4.1 mmol/L (3.4-5.0); Sodium 134 mmol/L (137-145)
[2019-12-11 06:00] VITALS: BP 160/81; PULSE 69; RESP 20; TEMP 36.4; O2SAT 98
[2019-12-11] MEDS: LEVOTHYROXINE SODIUM 100 MCG TABLET PO (06:05)
[2019-12-11] MEDS: LEVOTHYROXINE SODIUM 75 MCG TABLET PO (06:05)
[2019-12-11] MEDS: HEPARIN SODIUM 5,000 UNITS/ML VIAL 5000 UNITS SUB-Q ×3 (06:06→20:05)
[2019-12-11] MEDS: PANTOPRAZOLE 40 MG TABLET PO (10:18)
[2019-12-11] MEDS: MULTIVITAMINS THERAPEUTIC TAB (*BKC) 1 TABLET PO (10:18)
[2019-12-11] MEDS: CALCIUM CARBONATE (OSCAL) 500 MG TABLET 1000 MG PO (10:18)
[2019-12-11] MEDS: DEXAMETHASONE 2 MG TABLET PO ×2 (10:18→17:43)
[2019-12-11] MEDS: MELOXICAM 7.5 MG TABLET PO (10:19)
[2019-12-11] MEDS: levETIRAcetam 500 MG TABLET PO ×2 (10:19→20:05)
[2019-12-11] MEDS: DOCUSATE SODIUM 100 MG CAPSULE PO ×2 (10:19→20:04)
[2019-12-11] MEDS: ASPIRIN 81 MG CHEWABLE TABLET PO (10:19)
[2019-12-11] MEDS: LOSARTAN POTASSIUM 100 MG TABLET PO (10:19)
[2019-12-11] MEDS: hydroCHLOROthiazide 25 MG TABLET PO (10:19)
[2019-12-11] MEDS: ATORVASTATIN 10 MG TABLET PO (10:19)
[2019-12-11] MEDS: BISACODYL 5 MG TABLET EC 10 MG PO (13:15)
[2019-12-11 14:00] VITALS: BP 144/77; PULSE 71; RESP 18; TEMP 36.3; O2SAT 99
--- NOTE | 2019-12-11 16:41 | WPDNEURORHBP ---
Subjective Date/time seen: 12/11/19 16:41 Interval history: Patient is here post craniotomy for glioblastoma the plan is for him to be discharged tomorrow with outpatient PT and OT along with speech, patient denies any headache chest pain shortness of breath fever chills sore throat his white blood count is elevated to 25,000 most likely related to dexamethasone therapy likewise sugar is also elevated most likely due to dexamethasone which is being tapered as per schedule given to us by [facility] Review of Systems Constitutional: Constitutional: Reports no additional constitutional complaints Eyes: Eyes: Reports no additional eye complaints ENT: Reports system reviewed and no additional complaints, except as documented Cardiovascular: Cardiovascular: Reports no additional cardiovascular complaints Respiratory: Respiratory: Reports no additional respiratory complaints Gastrointestinal: Gastrointestinal: Reports no additional gastrointestinal complaints Genitourinary: Genitourinary: Reports no additional male genitourinary complaints Musculoskeletal: Musculoskeletal: Reports no additional musculoskeletal complaints Integumentary/Breasts: Skin/Breast: Reports system reviewed and no additional complaints, except as docu Neurologic: Reports system reviewed and no additional complaints, except as documented Psychiatric: Psychiatric: Reports no additional psychiatric complaints Functional Status Ambulation Ability Ability to Ambulate 10 Feet: Standby Assistance Ability to Ambulate 50 Feet With 2 Turns: Standby Assistance Ability to Ambulate 150 Feet: Standby Assistance Ambulation Assistive Devices: Cane Transfers Ability Ability to Transfer In/Out of Chair: Independent Exam Const: General: comfortable and no acute distress HENMT: General nose exam: Normal nares present Mouth: Yes moist mucous membranes Other: the craniotomy incision is clean and healthy no sign of infection noted Eyes: General: appearance normal, both eyes and all related structures Neck: Neck: supple and no JVD Resp: Effort & Inspection: normal respiratory effort Auscultation: clear to auscultation bilaterally Cardio: Rate: regular rate Rhythm: regular rhythm GI: GI Palp: Yes Soft to palpation Auscultation: normal bowel sounds Skin: General skin exam: normal color and no rashes or lesions noted Neuro: Other: patient's visual field primarily affecting the left side is stable he does have some issues with the ambulation however it has gotten better with the instructions given to him and he has done remarkably well on the rehab floor Extrem: General: normal to inspection Objective Data Vital Signs Vital Signs: Vital Signs - 24 hr 12/10/19 22:00 12/11/19 06:00 12/11/19 14:00 Temperature 36.6 C 36.4 C 36.3 C L Pulse Rate 80 69 71 Respiratory Rate 18 20 18 Blood Pressure 125/72 160/81 H 144/77 H Pulse Oximetry 98 98 99 Intake/Output Intake/Output: Intake & Output 12/08/19 12/09/19 12/10/19 12/11/19 23:59 23:59 23:59 23:59 Intake Total 300 580 240 280 Balance 300 580 240 280 Meds/Results Medications: Active Medications Generic Name Dose Route Start Last Admin Trade Name Freq PRN Reason Stop Dose Admin Acetaminophen 650 mg 12/03/19 18:03 12/10/19 21:34 Tylenol Tablet PO 650 mg Q4H PRN Administration Pain (Scale Score 1-3) Aspirin 81 mg 12/04/19 09:00 12/11/19 10:19 Aspirin Chewable PO 81 mg DAILY BLUE Administration Atorvastatin Calcium 10 mg 12/04/19 09:00 12/11/19 10:19 Lipitor PO 10 mg DAILY BLUE Administration Bisacodyl 10 mg 12/05/19 14:09 12/11/19 13:15 Dulcolax Tab PO 10 mg DAILY PRN Administration Constipation Calcium Carbonate 1,000 mg 12/04/19 09:00 12/11/19 10:18 Oscal 500 Mg PO 1,000 mg DAILY BLUE Administration Dexamethasone 2 mg 12/04/19 08:00 12/11/19 10:18 Dexamethasone Po PO 12/17/19 07:59 2 mg BIDWM BLUE Admin
[2019-12-11] MEDS: LATANOPROST 0.005% OP SOLN 2.5 ML BTL 1 DROP EACH EYE (17:42)
[2019-12-11] MEDS: MELATONIN 5 MG TABLET 10 MG PO (20:05)
[2019-12-11] MEDS: ACETAMINOPHEN 325 MG TABLET 650 MG PO (20:06)
[2019-12-11 22:00] VITALS: BP 129/72; PULSE 67; RESP 16; TEMP 36.6; O2SAT 97
[2019-12-12 06:00] VITALS: BP 145/72; PULSE 60; RESP 16; TEMP 36.4; O2SAT 98
[2019-12-12] MEDS: LEVOTHYROXINE SODIUM 100 MCG TABLET PO (06:05)
[2019-12-12] MEDS: HEPARIN SODIUM 5,000 UNITS/ML VIAL 5000 UNITS SUB-Q (06:05)
[2019-12-12] MEDS: LEVOTHYROXINE SODIUM 75 MCG TABLET PO (06:05)
[2019-12-12] MEDS: ACETAMINOPHEN 325 MG TABLET 650 MG PO (09:20)
[2019-12-12] MEDS: DEXAMETHASONE 2 MG TABLET PO (09:21)
[2019-12-12] MEDS: ASPIRIN 81 MG CHEWABLE TABLET PO (09:21)
[2019-12-12] MEDS: ATORVASTATIN 10 MG TABLET PO (09:21)
[2019-12-12] MEDS: PANTOPRAZOLE 40 MG TABLET PO (09:22)
[2019-12-12] MEDS: DOCUSATE SODIUM 100 MG CAPSULE PO (09:22)
[2019-12-12] MEDS: LOSARTAN POTASSIUM 100 MG TABLET PO (09:22)
[2019-12-12] MEDS: MULTIVITAMINS THERAPEUTIC TAB (*BKC) 1 TABLET PO (09:22)
[2019-12-12] MEDS: hydroCHLOROthiazide 25 MG TABLET PO (09:22)
[2019-12-12] MEDS: MELOXICAM 7.5 MG TABLET PO (09:22)
[2019-12-12] MEDS: CALCIUM CARBONATE (OSCAL) 500 MG TABLET 1000 MG PO (09:22)
[2019-12-12] MEDS: levETIRAcetam 500 MG TABLET PO (09:22)
--- NOTE | 2019-12-12 12:04 | WPDNEURORHBP ---
Subjective Date/time seen: 12/12/19 12:04 Interval history: patient is going with discharge to home along with the significant other is happy with the care he has received his is going to be in touch with the neurosurgical team at [facility] as have been mentioned or mentioning in my previous notes all the questions were answered patient is free of any symptoms particularly denies any headache double vision chest pain shortness of breath or lateralizing focal motor weakness his weakness if any has significantly improved which he had the time of the admission the balance is issue because of the visual field defect he has on the left side however he has been cautioned about doing thing rather in a slow motion and prevent fall Review of Systems Constitutional: Constitutional: Reports no additional constitutional complaints Eyes: Eyes: Reports no additional eye complaints ENT: Reports system reviewed and no additional complaints, except as documented Cardiovascular: Cardiovascular: Reports no additional cardiovascular complaints Respiratory: Respiratory: Reports no additional respiratory complaints Gastrointestinal: Gastrointestinal: Reports no additional gastrointestinal complaints Genitourinary: Genitourinary: Reports no additional male genitourinary complaints Musculoskeletal: Musculoskeletal: Reports no additional musculoskeletal complaints Integumentary/Breasts: Skin/Breast: Reports system reviewed and no additional complaints, except as docu Neurologic: Reports system reviewed and no additional complaints, except as documented Functional Status Ambulation Ability Ability to Ambulate 10 Feet: Standby Assistance Ability to Ambulate 50 Feet With 2 Turns: Standby Assistance Ability to Ambulate 150 Feet: Standby Assistance Ambulation Assistive Devices: Cane Transfers Ability Ability to Transfer In/Out of Chair: Independent Exam Const: General: comfortable and no acute distress HENMT: General nose exam: Normal nares present Mouth: Yes moist mucous membranes Eyes: General: appearance normal, both eyes and all related structures Other: dense left-sided visual field defect remains same Neck: Neck: supple and no JVD Resp: Effort & Inspection: normal respiratory effort Auscultation: clear to auscultation bilaterally Cardio: Rate: regular rate GI: GI Palp: Yes Soft to palpation Auscultation: normal bowel sounds Skin: General skin exam: normal color and no rashes or lesions noted Neuro: Other: patient has a decent normal Mental State examination likewise cranial nerve examination apart from showing significant left-sided homonymous hemianopsia is fairly decent and normal motor examination remains good strength bilaterally and ability to perform the activities of daily living quite well Extrem: General: normal to inspection Objective Data Vital Signs Vital Signs: Vital Signs - 24 hr 12/11/19 14:00 12/11/19 22:00 12/12/19 06:00 Temperature 36.3 C L 36.6 C 36.4 C L Pulse Rate 71 67 60 Respiratory Rate 18 16 16 Blood Pressure 144/77 H 129/72 145/72 H Pulse Oximetry 99 97 98 Intake/Output Intake/Output: Intake & Output 12/09/19 12/10/19 12/11/19 12/12/19 23:59 23:59 23:59 23:59 Intake Total 580 240 280 240 Balance 580 240 280 240 Meds/Results Medications: Active Medications Generic Name Dose Route Start Last Admin Trade Name Freq PRN Reason Stop Dose Admin Acetaminophen 650 mg 12/03/19 18:03 12/12/19 09:20 Tylenol Tablet PO 650 mg Q4H PRN Administration Pain (Scale Score 1-3) Aspirin 81 mg 12/04/19 09:00 12/12/19 09:21 Aspirin Chewable PO 81 mg DAILY BLUE Administration Atorvastatin Calcium 10 mg 12/04/19 09:00 12/12/19 09:21 Lipitor PO 10 mg DAILY BLUE Administration Bisacodyl 10 mg 12/05/19 14:09 12/11/19 13:15 Dulcolax Tab PO 10 mg DAILY PRN Administration Constipation Calcium Carbonate 1,000 mg 12/04/19 09:00 02
--- NOTE | 2019-12-13 16:16 | PCOTNOTE ---
OT Discharge Summary Graham has demonstrated progress in occupational therapy during his inpatient rehab stay. At time of discharge he completes bed mobility independently. He is independent with all transfers. Her ability to complete ADL tasks is as follows: Upper Body Dressing: supervision Lower Body Dressing: supervision Footwear: minimal assist Bathing: independent Toileting: independent Family training was been completed with alyssa during stay. Patient continues to exhibit deficits in the areas of vision. He has been discharged to home with alyssa and outpatient therapy. It was recommended that the patient have the following equipment to aid in functional independence: raised toilet seat, non-slip mat, grab bars, and shower seat with back.
--- NOTE | 2019-12-14 09:48 | DS_ITS ---
DATE OF DISCHARGE: 12/12/2019 DISCHARGE ACUTE REHABILITATION DIAGNOSES: brain dysfunction/non-traumatic with etiological diagnosis of right parietal, temporal and occipital lobe glioma. DISCHARGE ACUTE COMORBID CONDITIONS: 1. Renal stone. 2. GERD. 3. Hypertension. 4. Hyperlipidemia. REASON FOR ADMISSION: A 79-year-old right-handed male with past medical history of pituitary adenoma resection in 2004, presented to [facility] on 11/25/2019 subsequent to the complaint of headache of 2 weeks' duration and with left-sided visual field cut and progressive weight gain and unsteadiness. 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 Intraoperatively, case was complicated by increased venous bleeding. He was transferred to ICU. Postoperatively, he did fairly well, had a blood clot for which an IVC filter was placed on 12/02/2019. He continued to have left-sided neglect, decreased safety awareness, decreased balance and decreased motor control. He received DVT prophylaxis with heparin 5,000 units q.8 hours; also seizure prophylaxis with Keppra 1000 mg every 12 hours in addition to Decadron 4 mg q.6 hours, which was being gradually tapered down. He was transferred to rehab with followup appointment as an outpatient for the neurosurgical service and dexamethasone was being tapered. As mentioned above, his past history was consistent with: 1. Melanoma. 2. Thyroid cancer for which he has undergone thyroidectomy. 3. Hypertension. 4. Hyperlipidemia. LEVEL OF FUNCTION AT THE TIME OF ADMISSION: He was independent in eating, required partial assistance for oral hygiene and supervision for toileting, partial assistance for bathing, setup for upper body dressing, partial assistance for lower body dressing, supervision for footwear, rolling in bed, sit to lying, lying to sitting. He required partial assistance for sit to stand, chair transfer, supervision for toilet transfer, partial assistance for car transfer, 10 feet walking, 50 feet walking with 2 turns, 150 feet, walking 10 feet on uneven surfaces, curb or step, required supervision for the 4 steps, 12 steps and picking up objects. The wheelchair was not applicable. ANTICIPATED REHAB GOALS AT THE TIME OF DISCHARGE: To make him independent in all the modalities. LEVEL OF FUNCTION AT THE TIME OF ADMISSION FROM THIS HOSPITALIZATION: He became independent in eating, oral hygiene, toileting, bathing, rolling in bed, sit to lying, lying to sitting, sit to stand, chair transfer, car transfer. He required only setup for the upper body dressing, supervision for lower body dressing, partial assistance for the footwear, supervision for the toilet transfer, and setup for the 10 feet, 50 feet walking with 2 turns, 150 feet walking and walking 10 feet on uneven surfaces, curb or step, 4 steps and 12 steps. HOSPITAL COURSE: During the hospitalization, he was actively involved in the physical therapy. At the time of discharge, he had no specific complaint. He was able to ambulate up to 150 feet standby assistance with 2 turns including using a cane and he was able to transfer in and out of chair independently. The general physical examination was stable so was the neurological examination and the vital signs were stable. DISCHARGE MEDICATIONS: 1. Bisacodyl 10 mg p.o. daily. 2. Dexamethasone 2 mg p.o. b.i.d. 3. Diphenhydramine 25 mg h.s. 4. Levetiracetam 500 mg q.12 hours. 5. Melatonin 10 mg h.s. 6. Tramadol 50 mg q.6 hours. 7. Tylenol 650 mg q.4 hours p.r.n. 8. Aspirin 81 mg daily. 9. Atorvastatin 10 mg daily. 10. Calcium carbonate 1200 mg daily. 11. Latanoprost 1 drop every evening. 12
== END 2019-12-12 11:15 | disposition home or self-care (01) | DRG 949 ==
PROVIDERS: Admitting Provider Psychiatry & Neurology Neurology; Visit Provider Psychiatry & Neurology Neurology
DX: Z48.811 Encounter for surgical aftercare following surgery on the nervous system (principal); C71.9 Malignant neoplasm of brain, unspecified; G81.94 Hemiplegia, unspecified affecting left nondominant side; D72.829 Elevated white blood cell count, unspecified; E78.5 Hyperlipidemia, unspecified; H53.462 Homonymous bilateral field defects, left side; I10 Essential (primary) hypertension; K21.9 Gastro-esophageal reflux disease without esophagitis; N20.0 Calculus of kidney; R73.9 Hyperglycemia, unspecified; T38.0X5D Adverse effect of glucocorticoids and synthetic analogues, subsequent encounter; Z87.891 Personal history of nicotine dependence; Z90.89 Acquired absence of other organs; Z85.831 Personal history of malignant neoplasm of soft tissue; Z85.820 Personal history of malignant melanoma of skin; Z85.850 Personal history of malignant neoplasm of thyroid; Z95.828 Presence of other vascular implants and grafts; Z86.718 Personal history of other venous thrombosis and embolism
CPT/HCPCS: 36415; 80048; 80061; 85025; 87081; 92507; 92523; 97110; 97112; 97116; 97129; 97130; 97161; 97165; 97530; 97535; A9270; J1644; J8540

== ENCOUNTER 2020-11-24 18:08 | Emergency (ER) | payer MEDICARE, OTHER, SELFPAY ==
--- NOTE | ~2020-11-24 | XR_ITS ---
XR chest 2V DATE: 11/24/2020 18:30 INDICATION: Cough. Weakness. Brain cancer. TECHNIQUE: 2 views COMPARISON: None FINDINGS: Normal heart size. There is aortic calcification and unfolding. No hilar or mediastinal e nlargement. No pulmonary infiltrate or consolidation, pulmonary vascular congestion or pleural effus ion or pneumothorax. Old right healed right rib fractures. Scoliosis and degenerative spurring of the thoracic spine. Probable postoperative change of the thyroid gland. IMPRESSION: No active cardiopulmonary disease Aortic atherosclerosis Reviewed, dictated and finalized at location A. [employer]
--- NOTE | 2020-11-24 18:14 | ED.URI ---
HPI - URI/Sore Throat General Chief Complaint: Upper Respiratory Infection Stated Complaint: chest x ray Time Seen by Provider: 11/24/20 18:14 Source: patient Mode of arrival: ambulatory Limitations: no limitations History of Present Illness HPI Narrative: Same this is a 80-year-old male with glioblastoma of the brain who comes here for evaluation chest x-ray after having difficulty eating and drinking and has developed a cough. His medical oncologist has given him antibiotics to help treat this but patient states that flu is going down the wrong way . Patient has difficulty swallowing and is weak Patient is currently on chemotherapy for recurrence of large area of glioblastoma in his cerebellum that has caused him to develop sores inside his mouth and so difficult for him to get swallowing and is only taking fluids he is supposed to be taking in [address] [employer] Home Medications Medication Instructions Recorded Confirmed acetaminophen 650 mg PO Q4H PRN 12/03/19 11/24/20 aspirin 81 mg PO DAILY 12/03/19 11/24/20 levetiracetam 1,000 mg PO DAILY 11/24/20 11/24/20 lidocaine HCl [Lidocaine Viscous] 1 applic MUCOUS MEMBRANE QID 11/24/20 11/24/20 potassium chloride meq PO 11/24/20 prednisone 11/24/20 regorafenib [Stivarga] mg PO 11/24/20 Allergies Allergy/AdvReac Type Severity Reaction Status Date / Time No Known Allergies Allergy Verified 11/24/20 18:19 Review of Systems Review of Systems: Narrative: CONSTITUTIONAL: Denies fever, chills, sweats. EYES: Denies visual changes, redness, discharge. ENT: Denies rhinorrhea, congestion, sore throat, otalgia. Has sores in mouth and dry mucous membranes, states mouth sore CARDIOVASCULAR: Denies chest pain, palpitations, edema. RESPIRATORY: Denies dyspnea, wheezing, mild dry cough GASTROINTESTINAL: Denies abdominal pain, nausea, vomiting, diarrhea. GENITOURINARY: Denies dysuria, hematuria, abnormal discharge SKIN: Denies rash or itching. NEUROLOGIC: Denies numbness, or focal weakness. PSYCHIATRIC: Denies anxiety or depression. [facility] Past Medical History Medical History DVT (deep venous thrombosis) GERD (gastroesophageal reflux disease) Glioblastoma History of malignant melanoma History of pituitary adenoma History of thyroid cancer Hypertension Surgical History Surgical History S/P IVC filter Family History Family History Mother Congestive heart failure Diabetes mellitus Hypertension Social History Social History Smoking packs per day: 1 Smoking cigarettes per day: 20.0 Years smoked: 50 Smoking pack-years: 50.00 Smoking status: Former smoker Second hand tobacco smoke exposure: Yes Alcohol intake: current Drinks per week: 7 Substance use: never Substance use type: does not use Gender identity (if verbalized by the patient): Male Spiritual care concerns: No Agree to blood products: Yes Comments At time of signature, I agree with nursing past medical, surgical, social and family history. There is no relevant family history pertinent to the presenting complaint. Exam Narrative: Exam Narrative: GENERAL: This is a chronically ill-appearing patient, in mild distress. Appears dehydrated and weak HEAD: normocephalic, atraumatic. EYES: Sclera clear/white. Vision is L hemionopsia EARS: External ears normal, TMs normal without perforation. Hearing grossly intact. NOSE: External nose normal without nasal discharge, nares without redness, no rhinorrhea. Complaining of sores in mouth from chemotherapy THROAT: Mucous membranes dry NECK: Neck supple, non-tender CARDIOVASCULAR: Regular rate and rhythm without murmurs, gallops, or rubs. RESPIRATORY: Clear to auscultation. Breath sounds equal bilatera
[2020-11-24 18:44] VITALS: BP 117/74; PULSE 84; RESP 18; TEMP 36.3; O2SAT 96
== END 2020-11-24 18:56 | disposition home or self-care (01) ==
PROVIDERS: Emergency Provider Nurse Practitioner; PCP Internal Medicine
DX: R05 Cough (principal); C71.6 Malignant neoplasm of cerebellum; K21.9 Gastro-esophageal reflux disease without esophagitis; Z86.718 Personal history of other venous thrombosis and embolism; Z85.850 Personal history of malignant neoplasm of thyroid; Z85.820 Personal history of malignant melanoma of skin; Z87.891 Personal history of nicotine dependence
CPT/HCPCS: 71046; 99213; G0463